=== PATIENT | male | born 1980 | race Caucasian/White ===

== ENCOUNTER → 2025-05-20 06:30 | Outpatient (REF) | payer OTHER, SELFPAY | LOC: RAD 06:30 | PROVIDERS: ATTENDING PHYSICIAN Student in an Organized Health Care Education/Training Program | DX: Z00.00 Encounter for general adult medical examination without abnormal findings (principal); I70.90 Unspecified atherosclerosis | CPT/HCPCS: 93880 ==

== ENCOUNTER → 2025-07-29 07:31 | Outpatient (REF) | payer OTHER, SELFPAY | LOC: RCS 07:31 | PROVIDERS: ATTENDING PHYSICIAN Nuclear Medicine Nuclear Cardiology; FAMILY PHYSICIAN Student in an Organized Health Care Education/Training Program | DX: I10 Essential (primary) hypertension (principal) | CPT/HCPCS: 93306 ==